=== PATIENT | male | born 1940 ===

== ENCOUNTER 2016-11-18 14:15 | Day surgery (SDC) | payer OTHER ==
[2016-11-18 14:36] VITALS: BP 147/81; PULSE 77; RESP 20; TEMP 97.8; O2SAT 97
--- NOTE | 2016-11-19 09:18 | RADRPT ---
EXAM DATE/TIME: 11/18/2016 00:00 [place] COMPARISON : No previous studies available for comparison. INDICATIONS : consult for cryoablation of kidney mass OBJECTIVE: Temperature: 97.8 Heart Rate: 77 Blood Pressure: 147/81 Respiratory: 20 Oximetry: 97% PNEUMONIA VACCINE: NO HISTORY OF PRESENT ILLNESS: The patient is a 76-year-old Mal with a previous history of a 2.5 cm left renal biopsied demonst rating renal cell carcinoma which has remained stable in size. The patient has 2 indeterminate right renal masses which also may reflect carcinoma which have increased in size by 25%. Consultation is fo r percutaneous ablation of these lesions. The location of the mass in the left kidney is not accessib le to cryoablation. The patient's history is complicated by atrial fibrillation which is not been lalita ated with anticoagulation secondary to severe gastritis or bleeding which required multigated blood t ransfusion. PAST MEDICAL HISTORY : 1. Hypercholesterolemia. 2. atrial fib 3. depression 4. peptic ulcer disease 5. gi bleed 6. neuropathy 7. pad 8. PAST SURGICAL HISTORY : 1. hip replacement 2. fem pop SOCIAL HISTORY : 1ppd for 60 years No alcohol use.used to drink Tobacco;former. Patient has a ALLERGIES: NKDA MEDICATIONS: 1. Lanoxin (Digoxin).25 mg q.d. 2. atenolol 25 mg q.d. 3. donepezil 5 mg q.d. 4. pantoprazole 20 mg q.d. 5. trazadone 100 mg q.d. 6. loratadine 10 mg q.d. 7. gabapentin 600 mg q.d. 8. vitamin d3 2000 units q.d. 9. vitamin b12 5000 units q.d. 10. ibuprofen 800 mg q.d. IMAGING STUDIES: CT scan demonstrates a stable solid 2.6 cm mass in the anterior aspect of the left kidney not ac cessible to cryoablation. There are 2 smaller masses in the right kidney measuring 1.7 1.5 cm respect ively which have increased in size when compared to the prior study which have similar imaging charac teristics to the left renal mass and are suspicious for malignancy. ASSESSMENT: Extensive discussion was undertaken with the patient and his in regards to treatment option s versus surveillance. The procedure would require prolonged sedation. Considering his untreated atri al fibrillation this would be considered a high risk for cardiovascular events including stroke. Proc eeding versus surveillance was discussed and six-month followup is to be performed. They understand t he possible risk of tumor growth and metastatic disease during the surveillance. PLAN: Six-month followup MRI with contrast TIME SPENT: 30 minutes Miki Desir MD on November 19, 2016 at 9:11 Board Certified Radiologist. This report was verified electronically.
== END 2016-11-18 15:55 | disposition home or self-care (01) ==
LOC: HROP 14:15 → HRIP 14:16 → HROP 15:55
PROVIDERS: ATTEND Urology
DX: C64.9 Malignant neoplasm of unspecified kidney, except renal pelvis (principal); I48.91 Unspecified atrial fibrillation
CPT/HCPCS: 99212; G0463